=== PATIENT | male | born 1945 | race Caucasian/White ===

== ENCOUNTER → 2020-07-12 | Outpatient (CLI) | payer OTHER ==
[~2020-07-12] MED LIST: PROHANCE 279.3MG/ML 15ML VIAL As Ordered ONE; PROHANCE 279.3MG/ML 5ML VIAL As Ordered ONE
--- NOTE | 2020-07-19 12:21 | REP ---
MRI ABDOMEN WITH AND WITHOUT CONTRAST HISTORY: Liver lesions. 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 Also, a remote history of melanoma. COMPARISON: CT from the [facility] dated 05/13/2020. TECHNIQUE: Multiple sequences obtained in the axial and coronal planes prior to and following the intravenous administration of 20 mL ProHance. FINDINGS: The liver is not enlarged. On T2-weighted images, there is a dominant nodule in the anterior segment of the right lobe, which measures 3.3 cm in maximum diameter. This is mildly lobulated. A nodule of similar signal intensity is seen in the posterior segment of the right lobe at the same level measuring 2 cm in maximum diameter. More inferiorly in the inferior aspect of the anterior segment of the right lobe of the liver just above the level of the gallbladder, there is a nodule of similar signal intensity measuring 1.5 cm in diameter. All of these nodules demonstrate enhancement. I suspect these represent metastatic lesions. The gallbladder is grossly unremarkable. There is no biliary dilatation. The spleen is normal in size with no intrinsic abnormality. The adrenal glands demonstrate no mass. In the peripheral tail of the pancreas, no signal abnormality is seen on precontrast images. However, there is a focal enhancing nodule in the tail of the pancreas measuring approximately 1.2 cm in diameter. The kidneys demonstrate no hydronephrosis. There is a nonenhancing cyst in the mid left kidney anteriorly, which measures 1 cm in diameter. I see no periaortic adenopathy. No free fluid is seen. IMPRESSION: Three lesions are identified in the right lobe of the liver suspicious for metastatic lesions. There is a nonspecific enhancing nodule in the tail of the pancreas measuring 1.2 cm in diameter. Differential diagnosis would include benign and malignant neoplasm. No adenopathy. MTDD
== END ==
LOC: M RAD 13:16
PROVIDERS: ATTEND Physician Assistant
DX: R93.2 Abnormal findings on diagnostic imaging of liver and biliary tract (principal); K76.89 Other specified diseases of liver; K86.89 Other specified diseases of pancreas
CPT/HCPCS: 74183; A9576

== ENCOUNTER → 2024-04-26 | Outpatient (CLI) | payer OTHER ==
[~2024-04-26] MED LIST changes: +AMLO1TAB25 PO; +ATEN25TA PO; +ATOR80TA59 PO; +LISI40TA4 PO; -PROHANCE 279.3MG/ML 15ML VIAL As Ordered ONE; -PROHANCE 279.3MG/ML 5ML VIAL As Ordered ONE
== END ==
LOC: M ONCR 09:21
PROVIDERS: ATTEND General Practice
DX: C44.311 Basal cell carcinoma of skin of nose (principal); Z79.899 Other long term (current) drug therapy

== ENCOUNTER 2024-05-04 10:38 | Outpatient (RCR) | payer OTHER | END 2024-05-10 | LOC: M ONCR 10:38 | PROVIDERS: ATTEND General Practice | DX: Z51.0 Encounter for antineoplastic radiation therapy (principal); C44.311 Basal cell carcinoma of skin of nose ==

== ENCOUNTER 2024-06-09 10:42 | Outpatient (RCR) | payer OTHER | END 2024-06-10 | LOC: M ONCR 10:42 | PROVIDERS: ATTEND General Practice | DX: Z51.0 Encounter for antineoplastic radiation therapy (principal); C44.311 Basal cell carcinoma of skin of nose ==

== ENCOUNTER 2024-06-14 10:44 | Outpatient (RCR) | payer OTHER | END 2024-07-10 | LOC: M ONCR 10:44 | PROVIDERS: ATTEND General Practice | DX: Z51.0 Encounter for antineoplastic radiation therapy (principal); C44.311 Basal cell carcinoma of skin of nose ==